=== PATIENT | female | born 1970 | race Hispanic/Latino ===

== ENCOUNTER → 2024-03-15 | Outpatient (CLI) | payer OTHER | END | disposition home or self-care (01) | LOC: RAH 12:51 | PROVIDERS: ATTEND Internal Medicine Cardiovascular Disease | DX: Z13.6 Encounter for screening for cardiovascular disorders (principal); R07.9 Chest pain, unspecified; I34.0 Nonrheumatic mitral (valve) insufficiency | CPT/HCPCS: 75571 ==